=== PATIENT | female | born 1965 | race Two or more races ===

== ENCOUNTER 2022-07-28 14:44 | Emergency (ER) | payer OTHER ==
[~2022-07-28] VITALS: Ht 162.6 cm; Wt 93.0 kg
[2022-07-28] MEDS ORDERED: ACETAMINOPHEN ES 500 MG TABLET PO ONE (15:30)
[2022-07-28] MEDS ORDERED: ACETAMINOPHEN ES 500 MG TABLET ONE (15:30)
--- NOTE | 2022-07-28 17:42 | NUR ---
[facility] CALLED, 75-90 MIN ETA
--- NOTE | 2022-07-28 19:37 | NUR ---
REPORT GIVEN TO LAURA HERORN FOR [facility]
--- NOTE | 2022-07-28 19:45 | NUR ---
[facility] [address] AT BEDSIDE FOR PT TRANSPORT BACK TO HER FACILITY. PT IS IN STABLE CONDITION. REPORT GIVEN TO multimedia editor.
--- NOTE | 2022-07-28 19:51 | NUR ---
PT LEFT ON GURNEY WITH 2 HAY RAKE OPERATOR
[2022-07-28 20:18] VITALS: BP 130/70
== END 2022-07-28 19:52 | disposition home or self-care (01) ==
LOC: ER 17:51
DX: S00.81XA Abrasion of other part of head, initial encounter (principal); G35 Multiple sclerosis; I10 Essential (primary) hypertension; Z88.0 Allergy status to penicillin; Z88.2 Allergy status to sulfonamides; Z88.8 Allergy status to other drugs, medicaments and biological substances; Z88.5 Allergy status to narcotic agent; W01.0XXA Fall on same level from slipping, tripping and stumbling without subsequent striking against object, initial encounter; Y93.89 Activity, other specified; Y92.89 Other specified places as the place of occurrence of the external cause; Y99.8 Other external cause status
CPT/HCPCS: 70450-TC; 73564-TC; 73610-TC